=== PATIENT | male | born 1980 | race Caucasian/White ===

== ENCOUNTER 2019-11-03 08:18 | Emergency (ER) | payer OTHER ==
[~2019-11-03] VITALS: Ht 170.2 cm; Wt 109.1 kg
[2019-11-03 08:33] VITALS: BP 143/83
== END 2019-11-03 08:53 | disposition home or self-care (01) ==
LOC: EMS 08:23
DX: Z03.818 Encounter for observation for suspected exposure to other biological agents ruled out (principal); F17.210 Nicotine dependence, cigarettes, uncomplicated
CPT/HCPCS: 99283; 99406; U0003

== ENCOUNTER 2024-03-22 18:53 | Emergency (ER) | payer OTHER ==
[~2024-03-22] VITALS: Ht 170.2 cm; Wt 111.4 kg
[2024-03-22 18:59] VITALS: TEMP 98
[2024-03-22 19:15] VITALS: BP 142/88; PULSE 78; RESP 17; O2SAT 99
[2024-03-22] MEDS: KETOROLAC TROMETHAMINE 30 MG/ML VIAL IM ONE (20:29)
[2024-03-22] MEDS ORDERED: IBUP-2070 PO (21:36)
[2024-03-22] MEDS ORDERED: METH-812 PO (21:36)
== END 2024-03-22 22:07 | disposition home or self-care (01) ==
LOC: EMS 18:53
DX: S39.012A Strain of muscle, fascia and tendon of lower back, initial encounter (principal); F17.210 Nicotine dependence, cigarettes, uncomplicated; X58.XXXA Exposure to other specified factors, initial encounter; Y93.89 Activity, other specified; Y92.89 Other specified places as the place of occurrence of the external cause; Y99.8 Other external cause status
CPT/HCPCS: 99283; 72100; 96372; J1885